=== PATIENT | male | born 2000 | race Two or more races ===

== ENCOUNTER 2023-08-03 07:45 | Emergency (ER) | payer OTHER ==
[~2023-08-03] VITALS: Ht 172.7 cm; Wt 86.4 kg
[2023-08-03 10:08] VITALS: TEMP 98.6
[2023-08-03] MEDS ORDERED: IBUP-1492 PO (10:10)
[2023-08-03 10:25] VITALS: BP 128/72; PULSE 76; RESP 16
== END 2023-08-03 10:26 | disposition home or self-care (01) ==
LOC: EMS 07:48
DX: S92.422A Displaced fracture of distal phalanx of left great toe, initial encounter for closed fracture (principal); V19.9XXA Pedal cyclist (driver) (passenger) injured in unspecified traffic accident, initial encounter; Y93.89 Activity, other specified; Y92.89 Other specified places as the place of occurrence of the external cause; Y99.8 Other external cause status
CPT/HCPCS: 99283

== ENCOUNTER 2023-11-20 17:45 | Emergency (ER) | payer OTHER ==
[~2023-11-20] VITALS: Ht 172.7 cm; Wt 86.4 kg
[~2023-11-20 17:45] MED LIST: IBUP-1492 PO
[2023-11-20 17:49] VITALS: TEMP 98.6
[2023-11-20] MEDS ORDERED: IBUP-1492 PO (20:03)
[2023-11-20] MEDS ORDERED: HYDR-4723 PO (20:04)
[2023-11-20 20:14] VITALS: BP 133/74; PULSE 89; RESP 16
== END 2023-11-20 20:37 | disposition home or self-care (01) ==
LOC: EMS 17:48
DX: S82.141A Displaced bicondylar fracture of right tibia, initial encounter for closed fracture (principal); V89.2XXA Person injured in unspecified motor-vehicle accident, traffic, initial encounter; Y93.89 Activity, other specified; Y92.89 Other specified places as the place of occurrence of the external cause; Y99.8 Other external cause status
CPT/HCPCS: 29505; 99283